=== PATIENT | female | born 1980 | race Caucasian/White ===

== ENCOUNTER 2019-01-28 19:57 | Emergency (ER) | payer SELFPAY ==
[~2019-01-28] VITALS: Ht 162.6 cm; Wt 59.0 kg
[2019-01-28 20:10] VITALS: BP 146/72
[2019-01-28] MEDS ORDERED: predniSONE 10 MG TABLET PO ONE (20:45)
[2019-01-28] MEDS ORDERED: diphenhydrAMINE HCL 25 MG CAPSULE PO ONE (20:45)
[2019-01-28] MEDS ORDERED: FAMOTIDINE 20 MG TABLET. PO ONE (20:45)
[2019-01-28] MEDS ORDERED: PRED50TA PO (21:08)
[2019-01-28] MEDS ORDERED: DIPH25CA58 PO (21:08)
[2019-01-28] MEDS ORDERED: FAMO20TA5 PO (21:08)
[2019-01-28] MEDS ORDERED: NITR100C62 PO (21:08)
--- NOTE | 2019-01-28 21:09 | PHYS DOC ---
Past Medical History Past Medical History: No Pertinent History (PATRICIA ODELL APRN) Past Surgical History: No Surgical History (PATRICIA ODELL APRN) Additional Information: 1/2 ppd since 14 on/off Alcohol Use: Sober Drug Use: None (PATRICIA ODELL APRN) Attending Signature I have participated in the care of this patient and I have reviewed and agree with all pertinent clinical information above including history, exam, and recommendations. (ЕКАТЕРИНА GLASS MD) Adult General Chief Complaint Chief Complaint: ALLERGIC REACTION HPI HPI Patient is a 38 year old female who presents to the ED today complaining of an allergic reaction. Patient states she took Bactrim first dose today for UTI and is currently itching. She has a small rash on her chest. Denies any anaphylactic type reactions symptoms. (PATRICIA ODELL APRN) Review of Systems Review of Systems Constitutional: Denies fever or chills [] Eyes: Denies change in visual acuity, redness, or eye pain [] HENT: Denies nasal congestion or sore throat [] Respiratory: Denies cough or shortness of breath [] Cardiovascular: No additional information not addressed in HPI [] GI: Denies abdominal pain, nausea, vomiting, bloody stools or diarrhea [] : Denies dysuria or hematuria [] Musculoskeletal: Denies back pain or joint pain [] Integument: Reports rash on the chest and imaging Neurologic: Denies headache, focal weakness or sensory changes [] All other systems were reviewed and found to be within normal limits, except as documented in this note. (PATRICIA ODELL APRN) Current Medications Current Medications Current Medications Medications (Trade) Dose Ordered Sig/[place] Start Time Stop Time Status Last Admin Dose Admin Diphenhydramine HCl (Benadryl) 50 mg 1X ONCE 01/28/19 20:45 01/28/19 20:46 DC 01/28/19 21:11 50 MG Famotidine (Pepcid) 20 mg 1X ONCE 01/28/19 20:45 01/28/19 20:46 DC 01/28/19 21:10 20 MG Prednisone (Prednisone) 50 mg 1X ONCE 01/28/19 20:45 01/28/19 20:46 DC 01/28/19 21:11 50 MG (ЕКАТЕРИНА GLASS MD) Allergies Allergies Allergies Coded Allergies Type Severity Reaction Last Updated Verified sulfamethoxazole Allergy Intermediate Itching 01/28/19 Yes trimethoprim Allergy Intermediate Itching 01/28/19 Yes (ЕКАТЕРИНА GLASS MD) Physical Exam Physical Exam Constitutional: Well developed, well nourished, no acute distress, non-toxic appearance. [] HENT: Normocephalic, atraumatic, bilateral external ears normal, oropharynx moist, no oral exudates, nose normal. Airway is open. Eyes: PERRLA, EOMI, conjunctiva normal, no discharge. [] Neck: Normal range of motion, no tenderness, supple, no stridor. [] Cardiovascular:Heart rate regular rhythm, no murmur [] Lungs & Thorax: Bilateral breath sounds clear to auscultation [] Abdomen: Bowel sounds normal, soft, no tenderness, no masses, no pulsatile masses. [] Skin: Patient is actively itching. Warm, dry, trace erythema noted on the chest only. Back: No tenderness, no CVA tenderness. [] Extremities: No tenderness, no cyanosis, no clubbing, ROM intact, no edema. [] Neurologic: Alert and oriented X 3, normal motor function, normal sensory function, no focal deficits noted. [] Psychologic: Affect normal, judgement normal, mood normal. [] (PATRICIA ODELL APRN) Current Patient Data Vital Signs Vital Signs Date Time Temp Pulse Resp B/P (MAP) Pulse Ox O2 Delivery O2 Flow Rate FiO2 01/28/19 20:10 98.7 75 22 146/72 (96) 98 Room Air 98.7 (ЕКАТЕРИНА GLASS MD) EKG EKG [] (PATRICIA ODELL APRN) Radiology/Procedures Radiology/Procedures [] (PATRICIA ODELL APRN) Course & Med Decision Making Course & Med Decision Making Pertinent Labs and Imaging studies reviewed. (See chart for details) This is a 38-year-old female patient who presents to the ED today complaining of an allergic reaction to Bactrim, she took first dose of Bactrim today and developed itching. She is taking Bactrim for UTI. We will see chart for MicroBid. Her airway is open. She was given Benadryl, Pepcid and prednisone in the ED. She'll be discharged with the same medications. Follow-up with her own PCP in the course of next week. Provided return precautions. Instructed not to take the Bactrim (PATRICIA ODELL APRN) Dragon Disclaimer Dragon Disclaimer This electronic medical record was generated, in whole or in part, using a voice recognition dictation system. (PATRICIA ODELL APRN) Departure Departure Impression: Primary Impression: Allergic reaction to drug Disposition: HOME, SELF-CARE Condition: STABLE Referrals: NO PCP (PCP) follow up with your doctor next week Patient Instructions: Drug Allergy Additional Instructions: You were evaluated in the emergency room for an allergic reaction to Bactrim, please do not take this medication anymore. We switched you to MicroBid, take Benadryl every 6 hours until symptoms are gone, take prednisone as prescribed until completed and Pepcid every day until symptoms are gone. Follow-up with your doctor next week. Scripts Nitrofurantoin Monohyd/M-Cryst (MACROBID 100 MG CAPSULE) 100 Mg Capsule 1 CAP PO BID, #14 CAP Prov: PATRICIA ODELL APRN 01/28/19 Diphenhydramine Hcl (BENADRYL) 25 Mg Capsule 1 CAP PO Q6HRS, #30 CAP 1 Refill Prov: PATRICIA ODELL APRN 01/28/19 Famotidine (FAMOTIDINE) 20 Mg Tablet 20 MG PO DAILY, #7 TAB Prov: PATRICIA ODELL APRN 01/28/19 Prednisone (PREDNISONE) 50 Mg Tablet 1 TAB PO DAILY, #5 TAB Prov: PATRICIA ODELL APRN 01/28/19 Problem Qualifiers Primary Impression: Allergic reaction to drug Encounter type: initial encounter Qualified Codes: T78.40XA - Allergy, unspecified, initial encounter PATRICIA ODELL APRN Jan 28, 2019 21:09 ЕКАТЕРИНА GLASS MD Jan 29, 2019 04:03
== END 2019-01-28 21:20 | disposition home or self-care (01) ==
LOC: ER 19:57
DX: L27.0 Generalized skin eruption due to drugs and medicaments taken internally (principal); T36.8X5A Adverse effect of other systemic antibiotics, initial encounter; Z88.1 Allergy status to other antibiotic agents; Z88.2 Allergy status to sulfonamides; Y92.89 Other specified places as the place of occurrence of the external cause
CPT/HCPCS: 99284; J7512; Q0163